=== PATIENT | male | born 1945 | race Caucasian/White ===

== ENCOUNTER 2017-03-03 10:12 | Emergency (ER) | payer OTHER ==
[2017-03-03] VITALS (7 sets, daily range): BP systolic 170–246; BP diastolic 86–116; PULSE 84–112; RESP 16–20; TEMP 97.8–98.2; O2SAT 97–100
[~2017-03-03] VITALS: Ht 172.7 cm; Wt 61.0 kg
[~2017-03-03 10:12] MED LIST: AUGM875T PO; SLEEPING PILL PO
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
[2017-03-03] MEDS ORDERED: MORPHINE SULFATE 4 MG/ML INJ IV PUSH ONE ×2 (12:30→15:00)
[2017-03-03] MEDS ORDERED: hydrALAZINE HCL 20 MG/ML VIAL IV PUSH ONE (12:30)
[2017-03-03] MEDS ORDERED: SODIUM CHLOR 0.9% 1000 ML INJ 1,000 ML IV SCH (12:30)
[2017-03-03] MEDS ORDERED: ONDANSETRON HCL 4 MG/2 ML VIAL IV PUSH ONE (12:30)
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
[2017-03-03] MEDS ORDERED: LIDOCAINE 1%/EPINEPHrine 1:100,000 SOLN 20 ML VIAL INFIL ONE (13:00)
[2017-03-03 13:03] LABS: BASOPHIL # 0.1 TH/MM3 (0-0.2); BASOPHIL % 0.9 % (0.0-2.0); EOSINOPHIL % 0.1 % (0.0-4.0); HEMATOCRIT 51.2 % (39.0-51.0); HEMO FLAGS DIFF FINAL; LYMPH % 8.4 % (9.0-44.0); LYMPHOCYTE # 0.7 TH/MM3 (1.0-4.8); MEAN CELL VOLUME 96.1 FL (80.0-100.0); MEAN CORPUSCULAR HEMOGLOBIN 32.8 PG (27.0-34.0); MEAN CORPUSCULAR HGB CONC 34.1 % (32.0-36.0); MONO % 12.2 % (0.0-8.0); NEUT % 78.4 % (16.0-70.0); PLATELET COUNT 284 TH/MM3 (150-450); RED BLOOD COUNT 5.32 MIL/MM3 (4.50-5.90); RED CELL DISTRIBUTION WIDTH 14.2 % (11.6-17.2); WHITE BLOOD COUNT 8.9 TH/MM3 (4.0-11.0)
--- NOTE | 2017-03-03 13:14 | PD ---
Physical Exam Date Seen by Provider: March 03, 2017 Time Seen by Provider: 12:45 Narrative For full history of present illness please see previous note. Patient seen and evaluated for laceration of right elbow repaired. LACERATION # 1 LOCATION: Right elbow LENGTH: 3 cm NUMBER OF STITCHES/REJI: 5 REPAIR: The area of the laceration was prepped with Betadine and sterilely draped. The laceration was infiltrated with 1% lidocaine with epi. The wound was copiously irrigated and explored without evidence of foreign body, tendon injury or neurovascular injury. The wound was closed using 4-0 nylon. This was a single layer repair. A sterile dressing was applied. The patient was advised to keep the dressing clean and dry. Patient tolerated the procedure well. LACERATION # 2 LOCATION: Right upper extremity LENGTH: 3 skin tears all under 3 cm NUMBER OF STITCHES/REJI: Dermabond REPAIR: The area of the laceration was prepped with Betadine and sterilely draped. The laceration was infiltrated with None. The wound was copiously irrigated and explored without evidence of foreign body, tendon injury or neurovascular injury. The wound was closed using Dermabond. A sterile dressing was applied. The patient was advised to keep the dressing clean and dry. Patient tolerated the procedure well. Data Data Last Documented VS Vital Signs Date Time Temp Pulse Resp B/P Pulse Ox O2 Delivery O2 Flow Rate FiO2 03/03/17 12:53 112 18 246/116 97 Room Air 03/03/17 10:[address] Brain W/O Iv Contrast(Rout) (03/03/17 10:24) Ct Cerv Spine W/O Contrast (03/03/17 10:24) Chest, Single Ap (03/03/17 10:24) Ct Abd/Pel W Iv Contrast(Rout) (03/03/17 12:20) Morphine Inj (Morphine Inj) (03/03/17 12:30) Ondansetron Inj (Zofran Inj) (03/03/17 12:30) Hydralazine Inj (Apresoline Inj) (03/03/17 12:30) Iv Access Insert/Monitor (03/03/17 12:19) Sodium Chlor 0.9% 1000 Ml Inj (Ns 1000 M (03/03/17 12:30) Complete Blood Count With Diff (03/03/17 12:29) Basic Metabolic Panel (Bmp) (03/03/17 12:29) Prothrombin Time / Inr (Pt) (03/03/17 12:29) Act Partial Throm Time (Ptt) (03/03/17 12:29) Lidocai-Epi 1%-1:100,000 Inj (Xylocaine- (03/03/17 13:00) Labs Laboratory Tests Test 03/03/17 12:50 White Blood Count 8.9 TH/MM3 Red Blood Count 5.32 MIL/MM3 Hemoglobin 17.5 GM/DL Hematocrit 51.2 % Mean Corpuscular Volume 96.1 FL Mean Corpuscular Hemoglobin 32.8 PG Mean Corpuscular Hemoglobin 34.1 % Concent Red Cell Distribution Width 14.2 % Platelet Count 284 TH/MM3 Mean Platelet Volume 7.6 FL Neutrophils (%) (Auto) 78.4 % Lymphocytes (%) (Auto) 8.4 % Monocytes (%) (Auto) 12.2 % Eosinophils (%) (Auto) 0.1 % Basophils (%) (Auto) 0.9 % Neutrophils # (Auto) 7.0 TH/MM3 Lymphocytes # (Auto) 0.7 TH/MM3 Monocytes # (Auto) 1.1 TH/MM3 Eosinophils # (Auto) 0.0 TH/MM3 Basophils # (Auto) 0.1 TH/MM3 CBC Comment DIFF FINAL Differential Comment Sodium Level 134 MEQ/L Potassium Level 4.7 MEQ/L Chloride Level 101 MEQ/L Carbon Dioxide Level 23.9 MEQ/L Anion Gap 9 MEQ/L Blood Urea Nitrogen 9 MG/DL Creatinine 0.95 MG/DL Estimat Glomerular Filtration 78 ML/MIN Rate Random Glucose 99 MG/DL Calcium Level 9.3 MG/DL [facility] Supervised Visit with JARRETT: Tiara Ferreira March 03, 2017 13:14
[2017-03-03 13:20] LABS: BICARBONATE 23.9 MEQ/L (21.0-32.0)
[2017-03-03 13:21] LABS: POTASSIUM 4.7 MEQ/L (3.5-5.1)
[2017-03-03] MEDS ORDERED: IOHEXOL 350 MG/ML 10 ML VIAL (for RAD DIAG) IV ONE (14:35)
[2017-03-03] MEDS ORDERED: LORazepam 2 MG/ML VIAL IV PUSH ONE (15:00)
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
[2017-03-03] MEDS ORDERED: LISI10TA3 PO (15:47)
[2017-03-03] MEDS ORDERED: NORC5TAB PO (15:47)
[2017-03-03] MEDS ORDERED: CLON0.1T PO (15:52)
[2017-03-03] MEDS ORDERED: cloNIDine HCL 0.1 MG TAB PO PRN (16:00)
== END 2017-03-03 16:10 | disposition home or self-care (01) ==
LOC: NEPC 10:12
DX: S51.011A Laceration without foreign body of right elbow, initial encounter (principal); S41.112A Laceration without foreign body of left upper arm, initial encounter; S16.1XXA Strain of muscle, fascia and tendon at neck level, initial encounter; S61.012A Laceration without foreign body of left thumb without damage to nail, initial encounter; S20.221A Contusion of right back wall of thorax, initial encounter; I10 Essential (primary) hypertension; V49.40XA Driver injured in collision with unspecified motor vehicles in traffic accident, initial encounter; Y92.410 Unspecified street and highway as the place of occurrence of the external cause; F17.210 Nicotine dependence, cigarettes, uncomplicated
CPT/HCPCS: 12002; 70450; 71010; 72125; 74177; 80048; 85025; 96361; 96374; 96375; 96376; 99284; J0360; J2060; J2270; J2405; J7030; Q9967